=== PATIENT | male | born 1935 | race Asian ===

== ENCOUNTER 2017-09-05 17:14 | Emergency (ER) | payer BC, OTHER ==
[~2017-09-05] VITALS: Ht 167.6 cm; Wt 53.5 kg
[2017-09-05 19:53] VITALS: BP 157/97
== END 2017-09-05 19:53 | disposition home or self-care (01) ==
LOC: ED 17:14
DX: R10.9 Unspecified abdominal pain (principal)

== ENCOUNTER 2017-09-20 10:26 | Emergency (ER) | payer BC ==
[2017-09-20 13:32] LABS: BASOPHIL % 0.4 % (0-2); PLATELET COUNT 359 x10^3mcL (130-400); RED CELL DISTRIBUTION WIDTH 13.4 % (11.5-14.5)
[2017-09-20 13:47] LABS: CARBON DIOXIDE 31.2 mmol/L (21-32); CHLORIDE SERUM 97 mmol/L (98-107); CREATININE SERUM 0.6 mg/dL (0.7-1.3); GLUCOSE SERUM 99 mg/dL (74-106); POTASSIUM SERUM 4.4 mmol/L (3.5-5.1); SODIUM SERUM 133 mmol/L (136-145)
[2017-09-20 13:54] LABS: ALBUMIN 3.9 g/dL (3.4-5.0); ALKALINE PHOSPHATASE 112 U/L (46-116); ALT/SGPT 22 U/L (16-63); AST/SGOT 23 U/L (15-37); BILIRUBIN TOTAL 0.5 mg/dL (0.20-1.00); LIPASE 86 IU/L (73-393); TOTAL PROTEIN, SERUM 7.7 g/dL (6.4-8.2)
[2017-09-20 15:57] VITALS: BP 143/88
== END 2017-09-20 15:57 | disposition home or self-care (01) ==
LOC: ED 10:26
PROVIDERS: Emergency Medicine
DX: K59.00 Constipation, unspecified (principal); N40.0 Benign prostatic hyperplasia without lower urinary tract symptoms
CPT/HCPCS: 36415